=== PATIENT | female | born 1950 | race Caucasian/White ===

== ENCOUNTER → 2017-09-13 | Outpatient (CLI) | payer OTHER | LOC: BMCIMAGING 14:31 | PROVIDERS: ATTEND Internal Medicine | DX: Z12.31 Encounter for screening mammogram for malignant neoplasm of breast (principal); Z80.3 Family history of malignant neoplasm of breast ==

== ENCOUNTER → 2018-08-22 | Outpatient (CLI) | payer OTHER | LOC: BMCIMAGING 10:13 | PROVIDERS: ATTEND Clinical Nurse Specialist Adult Health | DX: N63.14 Unspecified lump in the right breast, lower inner quadrant (principal); R59.0 Localized enlarged lymph nodes ==

== ENCOUNTER → 2018-08-31 | Outpatient (CLI) | payer OTHER ==
[~2018-08-31] MED LIST: BUPIVACAINE 0.5% 30 ML SDV ONE; LIDOCAINE 1% 5 ML SDV ONE
== END ==
LOC: FIMAGING 07:16
PROVIDERS: ATTEND Clinical Nurse Specialist Adult Health
PROC: 0HBT3ZX Excision of Right Breast, Percutaneous Approach, Diagnostic (ICD-10-PCS; principal; 2018-08-31)
DX: D05.01 Lobular carcinoma in situ of right breast (principal)

== ENCOUNTER → 2018-09-20 | Outpatient (CLI) | payer OTHER | LOC: FIMAGING 12:41 ==